=== PATIENT | female | born 1995 | race African-American/Black ===

== ENCOUNTER → 2016-09-01 | Outpatient (CLI) | payer SELFPAY ==
--- NOTE | 2016-09-01 14:41 | RADIOLOGY REPORT (SQ) ---
EXAM DESCRIPTION: U/S [id number] TRNABD 1GES W/ODOP COMPLETED DATE/TIME: 09/01/2016 1:47 pm REASON FOR STUDY: ENCOUNTER FOR SUPERVISON FOR OTHER NORMAL , FIRST TRIMESTER Z34.81 ENCOU NTER FOR SUPRVSN OF NORMAL , FIRST TRIM COMPARISON: None. TECHNIQUE: Transabdominal static and realtime grayscale images acquired of the pelvis. Additional se lected spectral and color Doppler images recorded. All images stored on PACs. bHCG: Not available. LIMITATIONS: None. FINDINGS: FETUS: Living intrauterine . EGA: 11 weeks 3 days PAULINA: 03/20/2017 FHR: 162 beats per minute. SUBCHORIONIC BLEED: No. SIZE OF BLEED: Not applicable. UTERUS: 1 cm myometrial fibroid. CERVICAL LENGTH: 4.8 cm. Closed. RIGHT ADNEXA: Normal ovary with normal vascular flow. No adnexal free fluid. No adnexal masses. LEFT ADNEXA: Normal ovary with normal vascular flow. No adnexal free fluid. No adnexal masses. FREE FLUID: None. OTHER: No other significant finding. IMPRESSION: LIVING INTRAUTERINE . EGA 11 weeks 3 days Trimester of : First - 0 to 13 weeks. TECHNICAL DOCUMENTATION: JOB ID: [id number] [employer]- All Rights Reserved
== END ==
LOC: RAD 12:46
PROVIDERS: ATTEND Nurse Practitioner Women's Health
DX: Z34.81 Encounter for supervision of other normal pregnancy, first trimester (principal)
CPT/HCPCS: 76801

== ENCOUNTER 2017-02-27 15:18 | Outpatient (CLI) | payer MEDICAID ==
[2017-02-27 16:06] LABS: APPEARANCE,URINE SLIGHTLY-CLOUDY; BILIRUBIN,URINE NEGATIVE (NEGATIVE); CALCIUM OXALATE CRYSTALS,URINE FEW /HPF; COLOR,URINE YELLOW; GLUCOSE, URINE >=500 mg/dL (NEGATIVE); KETONES,URINE NEGATIVE (NEGATIVE); LEUKOCYTE ESTERASE,URINE NEGATIVE (NEGATIVE); NITRITE,URINE NEGATIVE (NEGATIVE); PROTEIN,URINE NEGATIVE (NEGATIVE)
[2017-02-27 16:07] LABS: URINE AMPHETAMINES SCREEN NEGATIVE; URINE BARBITURATES SCREEN NEGATIVE; URINE BENZODIAZEPINES SCREEN NEGATIVE; URINE COCAINE SCREEN NEGATIVE; URINE MARIJUANA (THC) SCREEN NEGATIVE; URINE METHADONE SCREEN NEGATIVE; URINE PHENCYCLIDINE SCREEN NEGATIVE
[2017-02-27 16:16] LABS: UR PRO/CREAT RATIO RESULT 0.1 mg/mg (0.0-0.2); URINE PROTEIN 10.2 mg/dL (<12)
[2017-02-27 16:43] LABS: HEMATOCRIT 32.9 % (36.0-47.0); HEMOGLOBIN 10.8 g/dL (12.0-15.5); MEAN CORPUSCULAR HEMOGLOBIN 29.7 pg (27.0-33.4); MEAN CORPUSCULAR HGB CONC 32.7 g/dL (32.0-36.0); MEAN CORPUSCULAR VOLUME 91 fl (80-97); PLATELET COUNT 287 10^3/uL (150-450); RED BLOOD COUNT 3.62 10^6/uL (3.72-5.28)
[2017-02-27 17:05] LABS: ALANINE AMINOTRANSFERASE 21 U/L (9-52); ALKALINE PHOSPHATASE 123 U/L (38-126); ANION GAP 8 (5-19); ASPARTATE AMINO TRANSFERASE 18 U/L (14-36); BILIRUBIN,DIRECT 0.1 mg/dL (0.0-0.4); BILIRUBIN,TOTAL 0.6 mg/dL (0.2-1.3); BLOOD UREA NITROGEN 6 mg/dL (7-20); CALCIUM 9.6 mg/dL (8.4-10.2); CARBON DIOXIDE 20 mmol/L (22-30); CHLORIDE 107 mmol/L (98-107); GLUCOSE 103 mg/dL (75-110); LDH 427 U/L (313-618); POTASSIUM 4.3 mmol/L (3.6-5.0); SODIUM 135.1 mmol/L (137-145); TOTAL PROTEIN 5.9 g/dL (6.3-8.2); URIC ACID 4.2 mg/dL (2.5-6.2)
== END 2017-02-27 17:00 | disposition home or self-care (01) ==
LOC: LC 15:18
PROVIDERS: ATTEND Obstetrics & Gynecology
PROC: 4A1HXCZ Monitoring of Products of Conception, Cardiac Rate, External Approach (ICD-10-PCS; principal; 2017-02-27)
DX: O14.93 Unspecified pre-eclampsia, third trimester (principal); Z3A.37 37 weeks gestation of pregnancy
CPT/HCPCS: 36415; 59025; 80053; 80307; 81001; 82570; 83615; 84156; 84550; 85027

== ENCOUNTER 2017-03-13 05:57 | Inpatient (IN) | payer MEDICAID ==
[2017-03-10 12:11] LABS: ABSOLUTE LYMPHOCYTES (AUTO) 2.5 10^3/uL (0.5-4.7); ABSOLUTE MONOCYTES (AUTO) 0.5 10^3/uL (0.1-1.4); ABSOLUTE NEUT (AUTO) 5.1 10^3/uL (1.7-8.2); BASOPHILS % (AUTO) 0.2 % (0-2); EOSINOPHILS % (AUTO) 0.3 % (0-6); HEMOGLOBIN 10.9 g/dL (12.0-15.5); LYMPHOCYTES % (AUTO) 30.5 % (13-45); MEAN CORPUSCULAR HEMOGLOBIN 29.5 pg (27.0-33.4); MEAN CORPUSCULAR HGB CONC 33.2 g/dL (32.0-36.0); MEAN CORPUSCULAR VOLUME 89 fl (80-97); MONOCYTES % (AUTO) 6.5 % (3-13); PLATELET COUNT 261 10^3/uL (150-450); RED BLOOD COUNT 3.71 10^6/uL (3.72-5.28); RED CELL DISTRIBUTION WIDTH 14.5 % (11.5-14.0); SEGMENTED NEUTROPHILS % (AUTO) 62.5 % (42-78); TOTAL CELLS COUNTED % (AUTO) 100 %; WHITE BLOOD COUNT 8.1 10^3/uL (4.0-10.5)
[2017-03-10 12:28] LABS: APPEARANCE,URINE CLEAR; BILIRUBIN,URINE NEGATIVE (NEGATIVE); COLOR,URINE YELLOW; GLUCOSE, URINE 50 mg/dL (NEGATIVE); KETONES,URINE NEGATIVE (NEGATIVE); LEUKOCYTE ESTERASE,URINE NEGATIVE (NEGATIVE); NITRITE,URINE NEGATIVE (NEGATIVE); PROTEIN,URINE NEGATIVE (NEGATIVE); URINE SPECIFIC GRAVITY 1.015; UROBILINOGEN,URINE NEGATIVE mg/dL (<2.0)
[2017-03-10 12:31] LABS: URINE AMPHETAMINES SCREEN NEGATIVE; URINE BARBITURATES SCREEN NEGATIVE; URINE BENZODIAZEPINES SCREEN NEGATIVE; URINE COCAINE SCREEN NEGATIVE; URINE MARIJUANA (THC) SCREEN NEGATIVE; URINE METHADONE SCREEN NEGATIVE; URINE PHENCYCLIDINE SCREEN NEGATIVE
[~2017-03-13 05:57] MED LIST: CEFAZOLIN 2 GM/D5W RTU 2 GM/50 ML RTUPB IV PRN; LACTATED RINGERS 1000 ML IV PRN; LIDOCAINE 0.5% INJ-PF (5 MG/ML) 50 ML SDV SUBCUT PRN; RINGERS SOLUTION,LACTATED 1,000 ML IV ONE
[2017-03-13] MEDS ORDERED: OXYTOCIN/NORMAL SALINE 20 UNIT/1,000 ML RTUINJ ONE (07:23)
[2017-03-13] MEDS ORDERED: OXYTOCIN 10 UNIT/ML VIAL ONE (07:23)
[2017-03-13] MEDS ORDERED: MIDAZOLAM 2 MG/2 ML INJ ONE (07:23)
[2017-03-13] MEDS ORDERED: FENTANYL CITRATE INJ/PF 100 MCG/2 ML AMPUL ONE (07:23)
[2017-03-13] MEDS ORDERED: EPHEDRINE SULFATE INJ 50 MG/1 ML AMPULE ONE (07:23)
[2017-03-13] MEDS ORDERED: CITRIC ACID/SODIUM CITRATE ORAL SOLN 15 ML UDCUP ONE (09:10)
[2017-03-13] MEDS ORDERED: ONDANSETRON HCL INJ/PF 4 MG/2 ML SDV ONE (09:10)
[2017-03-13] MEDS ORDERED: DIPHENHYDRAMINE HCL 50 MG/ML VIAL IV PRN (09:44)
[2017-03-13] MEDS ORDERED: MEPERIDINE HCL/PF INJ 25 MG/1 ML DISP.SYRIN IV PRN (09:44)
[2017-03-13] MEDS ORDERED: FENTANYL CITRATE INJ/PF 100 MCG/2 ML AMPUL IV PRN ×3 (09:44)
[2017-03-13] MEDS ORDERED: PROMETHAZINE HCL INJ 25 MG/1 ML VIAL IV PRN ×3 (09:44→10:22)
[2017-03-13] MEDS ORDERED: MORPHINE SULFATE 10 MG/ML INJ IV PRN (09:44)
[2017-03-13] MEDS ORDERED: ACETAMINOPHEN 325 MG TABLET PO PRN (10:22)
[2017-03-13] MEDS ORDERED: ACETAMINOPHEN 100 ML IV PRN (10:22)
[2017-03-13] MEDS ORDERED: RINGERS SOLUTION,LACTATED 1,000 ML IV PRN (10:22)
[2017-03-13] MEDS ORDERED: DIPH/PERTUSS(ACELL)/TETANUS VAC/PF 0.5 ML SYR (>=10YO) IM PRN (10:22)
[2017-03-13] MEDS ORDERED: OXYTOCIN/NORMAL SALINE 20 UNIT/1,000 ML RTUINJ IV PRN (10:22)
[2017-03-13] MEDS ORDERED: HYDROMORPHONE HCL INJ/PF 2 MG/ML AMPULE IV PRN (10:22)
[2017-03-13] MEDS ORDERED: MEASLES,MUMPS&RUBELLA VACC/PF 0.5 ML VIAL SUBCUT PRN (10:22)
[2017-03-13] MEDS ORDERED: ACETAMINOPHEN 100 ML IV ONE (10:22)
[2017-03-13] MEDS ORDERED: OXYCODONE-ACETAMINOPHEN 5-325 MG TABLET PO PRN (10:22)
--- NOTE | 2017-03-13 10:33 | Operative Report ---
Operative Report DATE OF SURGERY: 03/13/17 PREOPERATIVE DIAGNOSIS: Patient desires repeat to prevent risk of uterine rupture POSTOPERATIVE DIAGNOSIS: Same OPERATION: Repeat via low transverse uterine incision SURGEON: JAMEL PHAN ANESTHESIA: Spinal TISSUE REMOVED OR ALTERED: Placenta COMPLICATIONS: None ESTIMATED BLOOD LOSS: 250 INTRAOPERATIVE FINDINGS: Viable female Apgars 8 and 9 weight is 7 lbs. 4 oz. normal uterus tubes and ovaries. PROCEDURE: Patient was taken to the OR and placed in supine position after her spinal anesthesia. She is prepared and draped in sterile fashion. Drake was placed for drainage of the bladder. Low transverse incision was made and carried down the level of the fascia. The fascial incision was made with knife and extended bilaterally with curved Woodruff scissors. The fascia was off the rectus muscles using sharp and blunt dissection. The rectus muscles are in the midline. The peritoneum was entered without incident. Bladder blade was placed in uterine segment was identified. A low transverse incision was made creating a bladder flap. Bladder blade was placed low transverse uterine incision was made with the csafe knife and extended with fingertips. The baby was delivered with some fundal pressure. Mouth and nose were suctioned free. The cord is doubly clamped and cut. Baby is passed off to the band tacker in attendance. The placenta was manually extracted with trailing membranes. The uterus was externalized wrapped in a moist lap sponge. Uterine contents wiped free. Uterus was closed with a running locking layer of 0 chromic suture using the second layer to imbricate the first completing a double layer closure of the uterus. The serosa was closed with a running 2-0 chromic stitch. The pelvis was irrigated and suctioned free of fluid the uterus was replaced in the abdomen. The abdominal wall peritoneum was closed with running 2-0 chromic stitch. Fascia was closed with a running 0 Vicryl in 2 segments. Rob's layer was brought together with 0 plain gut stitch and the skin was closed with running subcuticular 4-0 undyed Vicryl stitch. The wound was dressed mother and baby did well.
[2017-03-13] MEDS: MORPHINE SULFATE 10 MG/ML INJ ONE ×2 (11:46→11:48)
[2017-03-13] MEDS: KETOROLAC TROMETHAMINE INJ/PF 30 MG/1 ML SDV IV SCH ×2 (11:48→17:22)
[2017-03-13] MEDS: OXYCODONE-ACETAMINOPHEN 5-325 MG TABLET PO PRN ×2 (14:03→18:30)
[2017-03-13] MEDS ORDERED: DEXAMETHASONE SOD PHOSPHATE INJ 4 MG/1 ML VIAL ONE (14:16)
[2017-03-13] MEDS ORDERED: METOCLOPRAMIDE HCL INJ/PF 10 MG/2 ML SDV ONE (14:16)
[2017-03-13] MEDS: DOCUSATE SODIUM 100 MG CAPSULE PO SCH (17:23)
[2017-03-14] MEDS: KETOROLAC TROMETHAMINE INJ/PF 30 MG/1 ML SDV IV SCH (01:45)
[2017-03-14 06:30] LABS: HEMATOCRIT 23.2 % (36.0-47.0); MEAN CORPUSCULAR HEMOGLOBIN 29.7 pg (27.0-33.4); MEAN CORPUSCULAR HGB CONC 33.3 g/dL (32.0-36.0); MEAN CORPUSCULAR VOLUME 89 fl (80-97); PLATELET COUNT 248 10^3/uL (150-450); RED BLOOD COUNT 2.61 10^6/uL (3.72-5.28); RED CELL DISTRIBUTION WIDTH 14.3 % (11.5-14.0); WHITE BLOOD COUNT 14.1 10^3/uL (4.0-10.5)
[2017-03-14 06:44] LABS: HEMOGLOBIN 7.7 g/dL (12.0-15.5)
--- NOTE | 2017-03-14 08:53 | PDOC PROGRESS REPORT ---
Subjective-OB Progress Note for:: 03/14/17 Subjective: pt alert and stable no complaints Physical Exam (OB) Vital Signs: Temp Pulse Resp BP Pulse Ox 97.9 F 89 22 H 136/54 H 100 03/14/17 04:30 03/14/17 04:30 03/14/17 04:30 03/14/17 04:30 03/14/17 04:30 Intake & Output 03/13/17 03/14/17 03/15/17 06:59 06:59 06:59 Intake Total 3640 Output Total 2350 Balance 1290 Weight 127.913 kg - Dressing Removed: No Incision: Dressing, Well Approximated - Lochia Lochia Amount: Moderate 25-50 ml Lochia Color: Rubra/Red - Abdomen Description: Soft, Round Hernia Present: No Bowel Sounds: Normoactive Flatus Presence: Present Stool: No Fundal Description: Firm, Midline Fundal Height: u/u - u/2 Objective-Diagnostic Laboratory: 03/14/17 06:06 03/14/17 06:06 WBC 14.1 H RBC 2.61 L Hgb 7.7 L Hct 23.2 L MCV 89 MCH 29.7 MCHC 33.3 RDW 14.3 H Plt Count 248 Assessment and Plan(PN) - Time Spent with Patient Time with patient: Less than 15 minutes Medications reviewed and adjusted accordingly: Yes - Disposition Anticipated Discharge: Home Within: within 24 hours - continue routine post op care
[2017-03-14] MEDS: ESCITALOPRAM OXALATE 10 MG TABLET PO SCH (09:26)
[2017-03-14] MEDS: PRENATAL VITAMIN W DHA CAPSULE PO SCH (09:26)
[2017-03-14] MEDS: DOCUSATE SODIUM 100 MG CAPSULE PO SCH ×2 (09:27→17:14)
[2017-03-14] MEDS: IBUPROFEN 800 MG TABLET PO SCH ×3 (12:15→23:32)
[2017-03-14] MEDS: SIMETHICONE 80 MG TAB.CHEW PO PRN (12:16)
[2017-03-15] MEDS: IBUPROFEN 800 MG TABLET PO SCH ×2 (06:27→13:08)
[2017-03-15] MEDS: OXYCODONE-ACETAMINOPHEN 5-325 MG TABLET PO PRN (06:28)
[2017-03-15] MEDS: SIMETHICONE 80 MG TAB.CHEW PO PRN (07:15)
[2017-03-15] MEDS: DOCUSATE SODIUM 100 MG CAPSULE PO SCH (11:06)
[2017-03-15] MEDS: PRENATAL VITAMIN W DHA CAPSULE PO SCH (11:06)
[2017-03-15] MEDS: ESCITALOPRAM OXALATE 10 MG TABLET PO SCH (11:07)
--- NOTE | 2017-03-15 11:25 | PDOC DISCHARGE SUMMARY ---
Final Diagnosis Discharge Date: 03/15/17 - Final Diagnosis (1) Anemia due to blood loss, acute Is this a current diagnosis for this admission?: Yes (2) delivery delivered Is this a current diagnosis for this admission?: Yes Discharge Data - Discharge Medication Prescriptions: Ferrous Sulfate 324 mg PO BID #60 tablet. Ibuprofen [Motrin 800 mg Tablet] 800 mg PO Q8HP PRN #90 tablet PRN Reason: Oxycodone HCl/Acetaminophen [Percocet 5-325 mg Tablet] 1 tab PO Q4HP PRN #30 tablet PRN Reason: Home Medications: Escitalopram Oxalate [Lexapro 10 mg Tablet] 1 tab PO DAILY 02/27/17 Vit,Calc76/Iron/Folic [Prenatabs Rx Tablet] 1 each PO DAILY 02/27/17 Ferrous Sulfate 324 mg PO BID #60 tablet. 03/15/17 Ibuprofen [Motrin 800 mg Tablet] 800 mg PO Q8HP PRN #90 tablet 03/15/17 Oxycodone HCl/Acetaminophen [Percocet 5-325 mg Tablet] 1 tab PO Q4HP PRN #30 tablet 03/15/17 Vit/Dha [ Multi + Dha Capsule] 1 cap PO DAILY capsule Reason(s) for Admission: Ceasarean Section-Repeat Procedures: NST Intrapartum Procedure(s): : Low Cervical, Transverse - Diagnosis Test Laboratory: Temp Pulse Resp BP Pulse Ox 98.1 F 93 18 128/64 H 100 03/15/17 07:41 03/15/17 07:41 03/15/17 04:00 03/15/17 07:41 03/15/17 07:41 03/10/17 03/10/17 03/14/17 11:25 11:32 06:06 RBC 3.71 L 2.61 L Hgb 10.9 L 7.7 L Hct 33.0 L 23.2 L Urine Opiates Screen NEGATIVE - Discharge information/Instructions Discharge Activity: Balance Activity w/Rest, No Driving, No Lifting/Push/Pulling , No tub bath Discharge Diet: Regular Disposition: HOME, SELF-CARE Follow up with: [facility] in: 1, Weeks
[2017-03-15 14:30] VITALS: BP 128/60
--- NOTE | 2017-03-19 23:39 | Non Stress Test Report ---
Non Stress Test Datetime Report Generated by CPN: 03/19/2017 23:39 INDICATION Indication for Study: Ordered by Provider Indication for Study (NST) Other: pih work up MONITORING Monitor Explained: Monitor Explained; Test Explained; Patient Verbalized Understanding Time on Monitor: 02/27/2017 15:50 Time off Monitor: 02/27/2017 16:57 NST Duration: 67 NST INTERVENTIONS NST Interventions: Reposition Patient Physician Notified NST: DRANDERSON REVIEWED STRIP BABY A: [id number] BABY A Movement : Present Contraction Frequency : 0 FHR Baseline : 140 Accelerations : 15X15 Decelerations : None Variability : Moderate 6-25bpm NST Review: Meets Criteria for Reactive NST NST Review and Verified By : BL ROULUND, RN NST Results: Reactive NST REPORT Report Trigger: Send Report
== END 2017-03-15 15:45 | disposition home or self-care (01) | DRG 765 ==
LOC: 2S 05:57
PROVIDERS: ADMIT Obstetrics & Gynecology; ATTEND Obstetrics & Gynecology
PROC: 4A1HXCZ Monitoring of Products of Conception, Cardiac Rate, External Approach (ICD-10-PCS; 2017-03-13)
PROC: 10D00Z1 Extraction of Products of Conception, Low, Open Approach (ICD-10-PCS; principal; 2017-03-13 09:15)
DX: O34.219 Maternal care for unspecified type scar from previous cesarean delivery (principal); Z68.43 Body mass index [BMI] 50.0-59.9, adult; D62 Acute posthemorrhagic anemia; O99.214 Obesity complicating childbirth; O34.211 Maternal care for low transverse scar from previous cesarean delivery; E66.9 Obesity, unspecified; O99.02 Anemia complicating childbirth; Z3A.38 38 weeks gestation of pregnancy; Z37.0 Single live birth
CPT/HCPCS: 1961; 36415; 59025; 80307; 81001; 85025; 85027; 86850; 86900; 86901; 94799; J0131; J0690; J1100; J1885; J2250; J2270; J2405; J2590; J2765; J3010; J3490; J7120

== ENCOUNTER 2017-03-16 17:01 | Outpatient (CLI) | payer MEDICAID ==
[2017-03-16 20:18] LABS: HEMATOCRIT 21.7 % (36.0-47.0); MEAN CORPUSCULAR HEMOGLOBIN 30.2 pg (27.0-33.4); MEAN CORPUSCULAR HGB CONC 33.4 g/dL (32.0-36.0); MEAN CORPUSCULAR VOLUME 90 fl (80-97); PLATELET COUNT 305 10^3/uL (150-450); RED CELL DISTRIBUTION WIDTH 14.7 % (11.5-14.0)
[2017-03-16 20:35] LABS: HEMOGLOBIN 7.2 g/dL (12.0-15.5)
[2017-03-17 00:30] VITALS: BP 138/81
[2017-03-17 03:26] LABS: HEMATOCRIT 23.2 % (36.0-47.0); MEAN CORPUSCULAR HGB CONC 33.5 g/dL (32.0-36.0); MEAN CORPUSCULAR VOLUME 89 fl (80-97); PLATELET COUNT 294 10^3/uL (150-450); RED CELL DISTRIBUTION WIDTH 15.1 % (11.5-14.0)
[2017-03-17 03:28] LABS: HEMOGLOBIN 7.8 g/dL (12.0-15.5)
== END 2017-03-17 06:00 | disposition home or self-care (01) ==
LOC: II 17:01 → 2N 17:08 → II 03-17 06:00
PROVIDERS: ATTEND Advanced Practice Midwife
PROC: 30233N1 Transfusion of Nonautologous Red Blood Cells into Peripheral Vein, Percutaneous Approach (ICD-10-PCS; principal; 2017-03-16)
DX: D64.9 Anemia, unspecified (principal)
CPT/HCPCS: 86900; 86901; 36415; 36430; 86850; 85027; 86920; P9016

== ENCOUNTER 2017-03-18 04:08 | Emergency (ER) | payer MEDICAID ==
--- NOTE | 2017-03-18 06:03 | ER Document Report ---
ED GI/ - General Chief Complaint: Vaginal Bleeding Stated Complaint: ABDOMINAL PAIN/VAGINAL BLEEDING Time Seen by Provider: 03/18/17 05:41 Mode of Arrival: Ambulatory Information source: Patient Notes: 22-year-old female presented ED for vaginal bleeding with a large clot just at 1 hour before coming to the emergency room. She stated she passed a very large clot while nursing her baby. She states she was anemic after her childbirth and had to give 1 unit of blood. She states before delivery she was 10.2 when they rechecked her blood he was 7.7 went down to 7.1gave her a unit of blood and it came back up to 7.8. She states the only pain she is having is at the incisional site from her . Dressing intact and dry to the C- section site. TRAVEL OUTSIDE OF THE [place] IN LAST 30 DAYS: No - HPI Patient complains to provider of: Vaginal bleeding - Post on Monday, Other - Incisional pain Onset: Just prior to arrival Quality of pain: Dull - An incisional site Severity at maximum: Mild Severity in ED: Mild Pain Level: 1 Vaginal bleeding (Compared to normal period): [place] - She states her breathing is much underwriting analyst now she just passed that one very large clot no more clots have been passed., Passing clots - Very large clot Associated symptoms: Other - Vaginal bleeding post on Monday. She states she was nursing her baby tonight just before coming to the emergency room and she passed a very large clot. Exacerbated by: Movement - An incisional site when movement Relieved by: Denies Similar symptoms previously: No Recently seen / treated by doctor: Yes - Related Data Allergies/Adverse Reactions: No Known Allergies Allergy (Verified 03/18/17 04:26) Past Medical History - General Information source: Patient - Social History Smoking Status: Never Smoker Cigarette use (# per day): No Chew tobacco use (# tins/day): No Smoking Education Provided: No Frequency of alcohol use: None Drug Abuse: None Lives with: Family Family History: DM, Hypertension, Malignancy, Other - seizures Patient has suicidal ideation: No Patient has homicidal ideation: No - Past Medical History Cardiac Medical History: Reports: Hx Hypertension - with 1st baby Pulmonary Medical History: Reports: None EENT Medical History: Reports: None Neurological Medical History: Reports: None Endocrine Medical History: Reports: Other - Gestational diabetes Renal/ Medical History: Reports: Other - Thrombocytopenia during with her first Malignancy Medical History: Reports: None GI Medical History: Reports: None Musculoskeltal Medical History: Reports None Skin Medical History: Reports None Psychiatric Medical History: Reports: Hx Depression Traumatic Medical History: Reports: None Infectious Medical History: Reports: None Past Surgical History: Reports: Hx Section - x3 - Immunizations Hx Diphtheria, Pertussis, Tetanus Vaccination: Yes Review of Systems - Review of Systems Constitutional: No symptoms reported EENT: No symptoms reported Cardiovascular: No symptoms reported Respiratory: No symptoms reported Gastrointestinal: No symptoms reported Genitourinary: No symptoms reported Female Genitourinary: Other - on Monday for large blood clot tonight normal postdelivery vaginal bleeding after the large blood clot Musculoskeletal: No symptoms reported Skin: No symptoms reported Hematologic/Lymphatic: No symptoms reported Neurological/Psychological: No symptoms reported -: Yes All other systems reviewed and negative Physical Exam - Vital signs Vitals: Temp Pulse Resp BP Pulse Ox 97.8 F 74 18 139/69 H 99 03/18/17 04:14 03/18/17 04:14 03/18/17 04:14 03/18/17 04:14 03/18/17 04:14 Interpretation: Normal - General General appearance: Appears well, Alert - HEENT Head: Normocephalic, Atraumatic Eyes: Normal Pupils: PERRL - Respiratory Respiratory status: No respiratory distress Chest status: Nontender Breath sounds: Normal Chest palpation: Normal - Cardiovascular Rhythm: Regular Heart sounds: Normal auscultation Murmur: No - Abdominal Inspection: Wounds - Surgical dressing intact to incision clean dry. Distension: No distension Bowel sounds: Normal Tenderness: Tender - Surgical incision Organomegaly: No organomegaly - Back Back: Normal, Nontender - Extremities General upper extremity: Normal inspection, Nontender, Normal color, Normal ROM , Normal temperature General lower extremity: Normal inspection, Nontender, Normal color, Normal ROM , Normal temperature, Normal weight bearing. No: Austin's sign - Neurological Neuro grossly intact: Yes Cognition: Normal Orientation: AAOx4 [place] Coma Scale Eye Opening: Spontaneous [place] Coma Scale Verbal: Oriented [place]ore Coma Scale Motor: Obeys Commands [place] Coma Scale Total: 15 Speech: Normal Motor strength normal: LUE, RUE, LLE, RLE Sensory: Normal - Psychological Associated symptoms: Normal affect, Normal mood - Skin Skin Temperature: Warm Skin Moisture: Dry Skin Color: Normal Location of irregularity: Abdomen Irregularity with: Other - Surgical incision intact with dressing intact Course - Re-evaluation Re-evalutation: 03/18/17 06:10 Patient examined to the ER for a very large about the size of a football clot that she passed while nursing her baby this evening. She is alert and oriented and states she is in no pain except for the incisional pain from her . Patient states she she has not passed any further clots since the one large clot and is now having normal post delivery bleeding. I will do a pelvic exam to evaluate her bleeding, get a CBC and type and screen and then reassess patient. 03/18/17 07:13 Hemoglobin is 8.4 which is much better than it was when she got her blood. Patient was given a copy of the CBC and will be discharged home. Patient is to follow-up with her PUBLIC ADDRESS SYSTEM INSTALLER on Monday or return to the ED for any more concerns. - Vital Signs Vital signs: Temp Pulse Resp BP Pulse Ox 97.8 F 74 18 139/69 H 99 03/18/17 04:14 03/18/17 04:14 03/18/17 04:14 03/18/17 04:14 03/18/17 04:14 - Laboratory Result Diagrams: 03/18/17 06:13 Laboratory results interpreted by me: 03/18/17 06:13 RBC 2.84 L Hgb 8.4 L Hct 25.6 L RDW 15.2 H Discharge - Discharge Clinical Impression: Large vaginal blood clot Condition: Stable Disposition: HOME, SELF-CARE Additional Instructions: You were seen today for passing a very large blood clot vaginally while nursing a baby tonight Her hemoglobin is 8.4 today which is much improved from the other day after you get your blood transfusion. Please continue all treatments that your PUBLIC ADDRESS SYSTEM INSTALLER has recommended. Acetaminophen Acetaminophen may be taken for pain relief or fever control. It's much safer than aspirin, offering a wider range of "safe" dosages. It is safe during . Some brand names are Tylenol, Panadol, Datril, Anacin 3, Tempra, and Liquiprin. Acetaminophen can be repeated every four hours. The following are maximum recommended dosages: WEIGHT Dose Drops Elixir Chewable( 80mg) (LBS.) drprs=droppers tsp=teaspoon 6 40 mg .4 ml (1/2) 6-11 80 mg .8 ml (full) 1/2 tsp 1 tab 12-16 120 mg 1 1/2 drprs 3/4 tsp 1 1/2 tabs 17-23 160 mg 2 drprs 1 tsp 2 tabs 24-30 240 mg 3 drprs 1 1/2 tsp 3 tabs 30-35 320 mg 2 tsp 4 tabs 36-41 360 mg 2 1/4 tsp 4 1 /2 tabs 42-47 400 mg 2 1/2 tsp 5 tabs 48-53 480 mg 3 tsp 6 tabs 54-59 520 mg 3 1/4 tsp 6 1 /2 tabs 60-64 560 mg 3 1/2 tsp 7 tabs 65-70 600 mg 3 3/4 tsp 7 1 /2 tabs 71-76 640 mg 4 tsp 8 tabs 77-82 720 mg 4 1/2 tsp 9 tabs 83-88 800 mg 5 tsp 10 tabs >89 pounds or adults 650 mg to 900 mg Acetaminophen can be repeated every four hours. Maximum daily dose not to exceed 4000 mg. These maximum recommended dosages are slightly higher than the dosages written on the product container, but these dosages are very safe and well below the toxic dosage for acetaminophen. FOLLOW-UP CARE: If you have been referred to a physician for follow-up care, call the physician s office for an appointment as you were instructed or within the next two days. If you experience worsening or a significant change in your symptoms, notify the physician immediately or return to the Emergency Department at any time for re-evaluation. Forms: Elevated Blood Pressure Referrals: JOSE LAI MD [Primary Care Provider] - Follow up as needed
[2017-03-18 06:24] LABS: ABSOLUTE EOSINOPHILS # (AUTO) 0.1 10^3/uL (0.0-0.6); ABSOLUTE LYMPHOCYTES (AUTO) 3.4 10^3/uL (0.5-4.7); ABSOLUTE MONOCYTES (AUTO) 0.8 10^3/uL (0.1-1.4); ABSOLUTE NEUT (AUTO) 6.2 10^3/uL (1.7-8.2); BASOPHILS % (AUTO) 0.2 % (0-2); EOSINOPHILS % (AUTO) 1.2 % (0-6); HEMATOCRIT 25.6 % (36.0-47.0); HEMOGLOBIN 8.4 g/dL (12.0-15.5); LYMPHOCYTES % (AUTO) 32.1 % (13-45); MEAN CORPUSCULAR HEMOGLOBIN 29.6 pg (27.0-33.4); MEAN CORPUSCULAR HGB CONC 32.8 g/dL (32.0-36.0); MEAN CORPUSCULAR VOLUME 90 fl (80-97); MONOCYTES % (AUTO) 7.5 % (3-13); PLATELET COUNT 317 10^3/uL (150-450); RED BLOOD COUNT 2.84 10^6/uL (3.72-5.28); RED CELL DISTRIBUTION WIDTH 15.2 % (11.5-14.0); TOTAL CELLS COUNTED % (AUTO) 100 %; WHITE BLOOD COUNT 10.5 10^3/uL (4.0-10.5)
[2017-03-18 07:57] VITALS: BP 133/51
== END 2017-03-18 07:51 | disposition home or self-care (01) ==
LOC: ER 04:08
DX: O88.23 Thromboembolism in the puerperium (principal); R10.9 Unspecified abdominal pain; G89.18 Other acute postprocedural pain
CPT/HCPCS: 36415; 85025; 99284

== ENCOUNTER 2019-10-05 00:26 | Emergency (ER) | payer SELFPAY ==
[2019-10-05] MEDS ORDERED: NORMAL SALINE 1000 ML 1,000 ML IV ONE (03:39)
[2019-10-05] MEDS ORDERED: ONDANSETRON HCL INJ/PF 4 MG/2 ML SDV IV ONE (03:39)
--- NOTE | 2019-10-05 03:41 | ER Document Report ---
ED GI/ - General Stated Complaint: ABDOMINAL PAIN/NAUSEA Time Seen by Provider: 10/05/19 03:21 Primary Care Provider: JOSE LAI MD [Primary Care Provider] - Follow up as needed Mode of Arrival: Ambulatory Information source: Patient Notes: Patient is a 24-year-old female comes emergency room complaining of onset of pelvic and abdominal pain. Patient states that started approximately 11 PM last evening and woke her up out of sleep. She states that it is crampy and sharp pain mostly suprapubically. She denies any dysuria type symptoms. Her last menstrual period is unknown she started or had [facility] She has not followed up with a CERTIFIED EMERGENCY VEHICLE TECHNICIAN since having a implanted. She denies any dyspareunia. She has had severe nausea without vomiting. No diarrhea is noted. Patient denies any fevers shortness of breath or chest pain. She denies any other medical problems. The only abdominal surgery she has had is been 3 C-sections. TRAVEL OUTSIDE OF THE [place] IN LAST 30 DAYS: No - HPI Patient complains to provider of: Abdominal pain Onset: Just prior to arrival Timing/Duration: Sudden Quality of pain: Cramping, Sharp, Stabbing Severity at maximum: Severe Severity in ED: Moderate Pain Level: 4 Location: RLQ Vaginal bleeding (Compared to normal period): None Menstrual period history: Abnormal LMP: Unknown has IUD : 3 - Related Data Allergies/Adverse Reactions: No Known Allergies Allergy (Verified 03/18/17 04:26) Past Medical History - General Information source: Patient - Social History Smoking Status: Never Smoker Cigarette use (# per day): No Chew tobacco use (# tins/day): No Smoking Education Provided: No Frequency of alcohol use: None Drug Abuse: None Lives with: Family Family History: Reviewed & Not Pertinent, DM, Hypertension, Malignancy, Other - seizures - Past Medical History Cardiac Medical History: Reports: Hx Hypertension - with 1st baby Renal/ Medical History: Denies: Hx Ovarian Cysts, Hx Peritoneal Dialysis, Hx Pelvic Inflammatory Disease Malignancy Medical History: Denies: Hx Breast Cancer, Hx Cervical Cancer, Hx Ovarian Cancer Psychiatric Medical History: Reports: Hx Depression Denies: Hx Bipolar Disorder, Hx Post Traumatic Stress Disorder, Hx Schizophrenia Past Surgical History: Reports: Hx Section - x3 - Immunizations Hx Diphtheria, Pertussis, Tetanus Vaccination: Yes Review of Systems - Review of Systems Constitutional: See HPI. denies: Fever EENT: No symptoms reported Cardiovascular: No symptoms reported Respiratory: No symptoms reported Gastrointestinal: See HPI, Abdominal pain, Nausea Genitourinary: See HPI Female Genitourinary: No symptoms reported Musculoskeletal: No symptoms reported Skin: No symptoms reported Hematologic/Lymphatic: No symptoms reported Neurological/Psychological: No symptoms reported -: Yes All other systems reviewed and negative Physical Exam - Vital signs Vitals: Temp Pulse Resp BP Pulse Ox 98.2 F 98 20 148/96 H 100 10/05/19 00:32 10/05/19 00:32 10/05/19 00:32 10/05/19 00:32 10/05/19 00:32 Interpretation: Hypertensive - Notes Notes: PHYSICAL EXAMINATION: GENERAL: Patient is well-nourished well-developed obese 24-year-old female who is in no apparent distress on physical exam this morning where she is very uncomfortable in obvious pain. HEAD: Atraumatic, normocephalic. EYES: Pupils equal round and reactive to light, extraocular movements intact, conjunctiva are normal. ENT: Nares patent, oropharynx clear without exudates. Moist mucous membranes. NECK: Normal range of motion, supple without lymphadenopathy LUNGS: Breath sounds clear to auscultation bilaterally and equal. No wheezes rales or rhonchi. HEART: Regular rate and rhythm without murmurs ABDOMEN: Examination patient's abdomen shows bowel sounds are present all 4 quads. She is moderately tender in the right lower quadrant more laterally than periumbilically. She has no flank pain to percussion. She has no suprapubic tenderness to palpation. Female : deferred Musculoskeletal: Normal range of motion, no pitting or edema. No cyanosis. NEUROLOGICAL: Normal speech, normal gait. Normal sensory, motor exams PSYCH: Normal mood, normal affect. SKIN: Warm, Dry, normal turgor, no rashes or lesions noted. Course - Re-evaluation Re-evalutation: 10/05/19 08:47 After receiving pain medication and fluids patient perked up quite a bit. CT showed the possibility of either torsion or hemorrhagic ovarian cyst. Suggested ultrasound ultrasound came back and showed that there was a fairly significant mass on the right ovary that measured about 7.2 x 5.2 x 6.6 which included either hemorrhagic cyst, endometrioma, dermoid or other neoplasm. Does state this is an increased risk for developing right ovarian torsion recommended follow-up in 6 to 12 weeks for an ultrasound. I contacted Dr. Federico Pompa the ELECTRICAL ASSEMBLY TECHNICIAN on-call and read him these reports and labs. He has stated since patient is 100% free of pain at present we will send her home on pain medication and that she can contact his office Monday morning for follow-up visit. He feels this most likely is a cyst presentation and that will probably resolve on its own but he will monitor her and follow her through the course and if need be can go ahead and do surgical exploration. - Vital Signs Vital signs: Temp Pulse Resp BP Pulse Ox 98.2 F 76 18 117/68 100 10/05/19 00:32 10/05/19 07:06 10/05/19 07:06 10/05/19 07:06 10/05/19 07:06 - Laboratory Result Diagrams: 10/05/19 04:15 10/05/19 04:15 Laboratory results interpreted by me: 10/05/19 04:15 Urine Protein 30 H Urine Urobilinogen 2.0 H Discharge - Discharge Clinical Impression: Ovarian mass, right UTI (urinary tract infection) Qualifiers: Urinary tract infection type: site unspecified Hematuria presence: without hematuria Qualified Code(s): N39.0 - Urinary tract infection, site not specified Condition: Stable Disposition: HOME, SELF-CARE Instructions: Cephalexin ([facility]), Pelvic Pain ([facility]) Additional Instructions: As we discussed I talked to Dr. Pompa the CERTIFIED EMERGENCY VEHICLE TECHNICIAN on-call you can go home we will treat you for your urinary tract infection and pain and nausea and contact his office on Monday for follow-up. Should you have any concerns or problems over the weekend return to ER for reevaluation. Prescriptions: Cephalexin Monohydrate [Keflex 500 mg Capsule] 500 mg PO BID 5 Days #14 capsule Hydrocodone/Acetaminophen [[place] 7.5-325 mg Tablet] 1 tab PO Q6 PRN #16 tablet PRN Reason: Promethazine HCl 12.5 mg PO Q4 PRN #20 tablet PRN Reason: Forms: Elevated Blood Pressure, Return to Work Referrals: JOSE LAI MD [Primary Care Provider] - Follow up as needed JAMEL POMPA MD [ACTIVE STAFF] - Follow up as needed
[2019-10-05 04:40] LABS: ABSOLUTE LYMPHOCYTES (AUTO) 2.9 10^3/uL (0.5-4.7); ABSOLUTE MONOCYTES (AUTO) 0.5 10^3/uL (0.1-1.4); ABSOLUTE NEUT (AUTO) 4.7 10^3/uL (1.7-8.2); BASOPHILS % (AUTO) 0.4 % (0-2); EOSINOPHILS % (AUTO) 0.4 % (0-6); HEMATOCRIT 40.5 % (36.0-47.0); HEMOGLOBIN 13.8 g/dL (12.0-15.5); LYMPHOCYTES % (AUTO) 35.6 % (13-45); MEAN CORPUSCULAR HEMOGLOBIN 31.3 pg (27.0-33.4); MEAN CORPUSCULAR VOLUME 92 fl (80-97); PLATELET COUNT 328 10^3/uL (150-450); RED CELL DISTRIBUTION WIDTH 13.6 % (11.5-14.0); SEGMENTED NEUTROPHILS % (AUTO) 57.6 % (42-78); TOTAL CELLS COUNTED % (AUTO) 100 %; WHITE BLOOD COUNT 8.1 10^3/uL (4.0-10.5)
[2019-10-05 04:56] LABS: ALBUMIN 4.2 g/dL (3.5-5.0); ALKALINE PHOSPHATASE 75 U/L (38-126); ANION GAP 10 (5-19); ASPARTATE AMINO TRANSFERASE 28 U/L (14-36); BILIRUBIN,DIRECT 0.2 mg/dL (0.0-0.4); BILIRUBIN,TOTAL 0.7 mg/dL (0.2-1.3); BLOOD UREA NITROGEN 16 mg/dL (7-20); CALCIUM 9.6 mg/dL (8.4-10.2); CARBON DIOXIDE 25 mmol/L (22-30); CHLORIDE 105 mmol/L (98-107); GLUCOSE 94 mg/dL (75-110); POTASSIUM 4.7 mmol/L (3.6-5.0); TOTAL PROTEIN 7.8 g/dL (6.3-8.2)
--- NOTE | 2019-10-05 05:48 | RADIOLOGY REPORT (SQ) ---
CLINICAL HISTORY: lower abd pain COMPARISON: None. TECHNIQUE: CT ABDOMEN PELVIS WITHOUT IV CONTRAST on 10/05/2019 3:38 AM CDT This exam was performed according to our departmental dose-optimization program, which includes automated exposure control, adjustment of the mA and/or kV according to patient size and/or use of iterative reconstruction technique. FINDINGS: Lower lungs are clear. Abdomen: Liver is fatty in attenuation. There is no biliary dilatation. Gallbladder is normal in appearance. The pancreas and spleen are normal in appearance. The adrenal glands and kidneys are unremarkable. Abdominal aorta is normal in course and caliber without aneurysm. There is no free air. There is no retroperitoneal adenopathy. Pelvis: There is no bowel obstruction. Urinary bladder is unremarkable. There is small amount of free pelvic fluid. Uterus is normal in size. Appendix is normal. Right ovary is enlarged, measuring 7.3 x 7.1 cm containing large amount of hyperdense material. IUD is present. Skeleton: There are no acute osseous findings. No suspicious bony lesions. IMPRESSION: Abnormal appearance of the right ovary. This could be secondary to a large hemorrhagic cyst versus potential torsion. Recommend ultrasound.
[2019-10-05] MEDS ORDERED: MORPHINE SULFATE 10 MG/ML INJ IV ONE (05:56)
[2019-10-05 07:06] VITALS: BP 117/68
[2019-10-05 07:12] LABS: APPEARANCE,URINE TURBID; BILIRUBIN,URINE NEGATIVE (NEGATIVE); COLOR,URINE YELLOW; GLUCOSE, URINE NEGATIVE (NEGATIVE); KETONES,URINE NEGATIVE (NEGATIVE); LEUKOCYTE ESTERASE,URINE NEGATIVE (NEGATIVE); NITRITE,URINE NEGATIVE (NEGATIVE); PROTEIN,URINE 30 mg/dL (NEGATIVE); URINE SPECIFIC GRAVITY 1.033
--- NOTE | 2019-10-05 07:45 | RADIOLOGY REPORT (SQ) ---
EXAM DESCRIPTION: US PELVIS TRANSVAGINAL COMPLETED DATE/TME: 10/05/2019 05:54 CLINICAL HISTORY: 24 years Female, Possible torsion Comparison: 09/01/16. CT, same day. Technique: Transvaginal. LIMITATIONS: None. FINDINGS: 5.3 x 4.4 x 4.4 cm heterogeneous, echogenic right ovarian mass with vascularity at its periphery. Right ovary measures 7.2 x 5.2 x 6.6 cm. Differential diagnosis includes hemorrhagic cyst, endometrioma, dermoid, or other neoplasm. There is increased risk for developing right ovarian torsion. Recommend ultrasound follow-up in 6-12 weeks. Inferiorly displaced IUD is at the level of the lower uterine segment. 10.7 x 3.7 x 5.3-cm uterus, 0.5-cm endometrial stripe thickness, 7.2-cm right ovary, and 3.0-cm left ovary appear otherwise unremarkable in size, shape, echotexture, and vascularity. Small pelvic fluid. IMPRESSION: 1. 5.3 x 4.4 x 4.4 cm heterogeneous, echogenic right ovarian mass with vascularity at its periphery. Right ovary measures 7.2 x 5.2 x 6.6 cm. Differential diagnosis includes hemorrhagic cyst, endometrioma, dermoid, or other neoplasm. There is increased risk for developing right ovarian torsion. Recommend ultrasound follow-up in 6-12 weeks. 2. Inferiorly displaced IUD is at the level of the lower uterine segment.
== END 2019-10-05 09:00 | disposition home or self-care (01) ==
LOC: ER 00:26
DX: N39.0 Urinary tract infection, site not specified (principal); T83.32XA Displacement of intrauterine contraceptive device, initial encounter; Y76.8 Miscellaneous obstetric and gynecological devices associated with adverse incidents, not elsewhere classified; N83.9 Noninflammatory disorder of ovary, fallopian tube and broad ligament, unspecified; R10.2 Pelvic and perineal pain; R11.0 Nausea; R10.32 Left lower quadrant pain; R10.813 Right lower quadrant abdominal tenderness; I10 Essential (primary) hypertension; E66.9 Obesity, unspecified
CPT/HCPCS: 99285; 96361; 96374; 96375; 36415; 83690; 85025; 81025; 80053; 81001; 76830; 93976; 74176; J2270; J2405; J7030